=== PATIENT | male | born 1970 | race Caucasian/White ===

== ENCOUNTER 2017-10-05 09:57 | Inpatient (IN) | payer OTHER ==
[2017-10-05] VITALS (10 sets, daily range): BP systolic 127–149; BP diastolic 53–68
[~2017-10-05] VITALS: Ht 167.6 cm; Wt 79.8 kg
[2017-10-05 10:32] LABS: BASE EXCESS -15.2 mEq/L (-3 to +3); BICARBONATE 10.9 mEq/L (22-26); CARBOXY HGB 1.7 % (0-5); COMMENTS - BLOOD GASES A+C+; DEVICE NC; METHEMOGLOBIN 0.7 % (0-1.5); O2 FLOW 3 L/MIN; PCO2 26 mm Hg (35-45); PO2 87 mm Hg (80-100); SITE LR; TOTAL RESP RATE 19 resp/min
[2017-10-05 10:33] LABS: pH 7.23 (7.35-7.45)
[2017-10-05 11:27] LABS: EOSINOPHIL (%) 0.2 % (0-5); HEMATOCRIT 30.6 % (38.0-50.0); INSTRUMENT ABS NEUTROPHIL CT 3.2 K/uL; LYMPHOCYTE COUNT 0.2 K/uL (1.0-2.8); MCH 27.4 PG (29.0-34.0); MCHC 30.4 G/DL (30.0-36.0); MCV 90.3 FL (86-99); MONOCYTE (%) 13.5 % (3-12); MONOCYTE COUNT 0.6 K/uL (0-0.8); NEUTROPHIL (%) 79.2 % (45-76); NEUTROPHIL COUNT 3.2 K/uL (1.8-6.4); RBC DIS.WIDTH-CV 15.5 % (11.8-14.6); RBC DIS.WIDTH-SD 51.9 % (39-53); RED BLOOD COUNT 3.39 M/uL (4.00-5.50); WHITE BLOOD COUNT 4.1 K/uL (4.1-10.2)
[2017-10-05 11:34] LABS: INTER. NORMALIZED RATIO 1.1; PROTHROMBIN TIME 12.7 SEC (10.2-12.9)
[2017-10-05 11:36] LABS: PTT 20.9 SEC (25-37)
[2017-10-05 11:45] LABS: CHLORIDE 93 mEq/L (99-109)
[2017-10-05 11:46] LABS: POTASSIUM 4.9 mEq/L (3.7-5.4); SODIUM 127 mEq/L (136-147); TROP-I INTERPRETATION NEGATIVE; TROPONIN-I 0.01 ng/mL (0.0-0.30)
[2017-10-05 11:49] LABS: ANION GAP 25 MEQ/L (2-14)
[2017-10-05 11:50] LABS: TOTAL BILIRUBIN 0.5 mg/dL (0.0-1.0)
[2017-10-05 11:51] LABS: ALKALINE PHOSPHATASE 141 IU/L (3-129); GFR ESTIMATE (CALCULATED) 13 mL/min/ (58.99-99999)
[2017-10-05 11:53] LABS: UREA NITROGEN (BUN) 75 mg/dL (9-23)
[2017-10-05 11:54] LABS: CREATINE KINASE 116 IU/L (1-294); TOTAL CK 116 IU/L (1-294)
[2017-10-05 11:56] LABS: GLUCOSE 748 mg/dL (70-99)
[2017-10-05 12:00] LABS: CK-MB 7.2 ng/mL (0.0-4.9)
[2017-10-05] MEDS ORDERED: ISOSORBIDE DINI30 MG PO (13:29)
[2017-10-05] MEDS ORDERED: AMLODIPINE BESY10 MG PO (13:30)
[2017-10-05] MEDS ORDERED: HUMALOG100 UNIT/2 SC (13:31)
[2017-10-05] MEDS ORDERED: ESCITALOPRAM OX10 MG PO (13:31)
[2017-10-05] MEDS ORDERED: LYRICA75 MG PO (13:32)
[2017-10-05] MEDS ORDERED: APRESOLINE25 MG PO (13:33)
[2017-10-05] MEDS ORDERED: METOPROLOL TART25 MG PO (13:33)
[2017-10-05] MEDS ORDERED: LANTUS 3 M100 UNITS1 SC (13:34)
[2017-10-05] MEDS ORDERED: MEKINIST2 MG PO (13:35)
[2017-10-05 13:54] LABS: MEAN PLAT.VOLUME 10.6 uM^3 (9.0-12.4); PLAT.SUFFICIENCY ADEQUATE; PLATELET COUNT 196 K/uL (156-360)
[2017-10-05] MEDS ORDERED: ASPIR 8181 M1 PO (14:58)
[2017-10-05] MEDS ORDERED: PREDNISONE5 MG PO (15:00)
[2017-10-05] MEDS ORDERED: IMODIUM A-D2 M2 PO (15:00)
[2017-10-05] MEDS ORDERED: RENVELA800 MG PO (15:01)
[2017-10-05] MEDS ORDERED: TAFINLAR75 MG PO (15:02)
[2017-10-05 16:46] LABS: POINT-OF-CARE METER ID UU14174217
[2017-10-05 16:46] LABS: POINT-OF-CARE METER ID UU14174217
[2017-10-05 17:14] LABS: METH RESISTANT S AUREUS PCR NEGATIVE (NEGATIVE)
[2017-10-05 17:15] LABS: PROBE CHECK PASS; SPECIMEN PROCESSING CONTROL PASS
[2017-10-05 17:49] LABS: POINT-OF-CARE METER ID UU14174217
[2017-10-05 18:11] LABS: POINT-OF-CARE METER ID UU14174217
[2017-10-05 19:10] LABS: POINT-OF-CARE METER ID UU14174217
[2017-10-05 19:33] LABS: POINT-OF-CARE METER ID UU14174217
[2017-10-05 20:35] LABS: POINT-OF-CARE METER ID UU14174217
[2017-10-05 20:45] LABS: ANION GAP 12 MEQ/L (2-14); CHLORIDE 97 MEQ/L (99-109); POTASSIUM 4.1 MEQ/L (3.7-5.4); SAMPLE HEMOLYSIS CHECK 0; SAMPLE ICTERIC CHECK 0; SAMPLE LIPEMIA CHECK 0; SODIUM 133 MEQ/L (136-147)
[2017-10-05 20:53] LABS: GFR ESTIMATE (CALCULATED) 27 mL/min/ (58.99-99999); GLUCOSE 253 mg/dL (70-99); UREA NITROGEN (BUN) 36 mg/dL (9-23)
[2017-10-05 21:34] LABS: POINT-OF-CARE METER ID UU14174217
[2017-10-05 22:30] LABS: POINT-OF-CARE METER ID UU14174217; POINT-OF-CARE USER ID ENVSME70
[2017-10-05 23:39] LABS: POINT-OF-CARE METER ID UU14174217
[2017-10-06] VITALS (12 sets, daily range): BP systolic 134–184; BP diastolic 61–81
[2017-10-06 00:02] LABS: POINT-OF-CARE METER ID UU14162636
[2017-10-06 00:54] LABS: CHLORIDE 99 mEq/L (99-109); POTASSIUM 4.2 mEq/L (3.7-5.4); SODIUM 133 mEq/L (136-147)
[2017-10-06 00:56] LABS: GLUCOSE 102 mg/dL (70-99)
[2017-10-06 00:57] LABS: ANION GAP 11 MEQ/L (2-14)
[2017-10-06 01:00] LABS: GFR ESTIMATE (CALCULATED) 24 mL/min/ (58.99-99999)
[2017-10-06 01:01] LABS: UREA NITROGEN (BUN) 37 mg/dL (9-23)
[2017-10-06 01:41] LABS: POINT-OF-CARE METER ID UU14174217
[2017-10-06 05:42] LABS: EOSINOPHIL (%) 2.3 % (0-5); EOSINOPHIL COUNT 0.1 K/uL (0-0.3); HEMATOCRIT 28.8 % (38.0-50.0); IMMATURE GRANULOCYTE (%) 0.8 % (0.0-0.7); INSTRUMENT ABS NEUTROPHIL CT 2.7 K/uL; LYMPHOCYTE COUNT 0.6 K/uL (1.0-2.8); MCH 27.2 PG (29.0-34.0); MCHC 32.6 G/DL (30.0-36.0); MCV 83.5 FL (86-99); MEAN PLAT.VOLUME 10.4 uM^3 (9.0-12.4); MONOCYTE (%) 13.1 % (3-12); MONOCYTE COUNT 0.5 K/uL (0-0.8); NEUTROPHIL (%) 67.9 % (45-76); NEUTROPHIL COUNT 2.7 K/uL (1.8-6.4); PLATELET COUNT 203 K/uL (156-360); RBC DIS.WIDTH-CV 15.4 % (11.8-14.6); RBC DIS.WIDTH-SD 46.8 % (39-53); RED BLOOD COUNT 3.45 M/uL (4.00-5.50)
[2017-10-06 06:22] LABS: ANION GAP 9 MEQ/L (2-14); CHLORIDE 100 MEQ/L (99-109); GFR ESTIMATE (CALCULATED) 21 mL/min/ (58.99-99999); MAGNESIUM 1.9 mg/dl (1.3-2.7); POTASSIUM 4.2 MEQ/L (3.7-5.4); SAMPLE HEMOLYSIS CHECK 0; SAMPLE ICTERIC CHECK 0; SAMPLE LIPEMIA CHECK 0; SODIUM 134 MEQ/L (136-147); UREA NITROGEN (BUN) 36 mg/dL (9-23)
[2017-10-06 06:23] LABS: GLUCOSE 61 mg/dL (70-99)
[2017-10-06 07:54] LABS: POINT-OF-CARE METER ID UU14174217
[2017-10-06 08:58] LABS: ANION GAP 10 MEQ/L (2-14); CHLORIDE 100 MEQ/L (99-109); GFR ESTIMATE (CALCULATED) 21 mL/min/ (58.99-99999); GLUCOSE 116 mg/dL (70-99); POTASSIUM 4.2 MEQ/L (3.7-5.4); SAMPLE HEMOLYSIS CHECK 0; SAMPLE ICTERIC CHECK 0; SAMPLE LIPEMIA CHECK 0; SODIUM 136 MEQ/L (136-147); UREA NITROGEN (BUN) 37 mg/dL (9-23)
[2017-10-06 11:50] LABS: POINT-OF-CARE METER ID UU14174217
[2017-10-06 17:44] LABS: POINT-OF-CARE METER ID UU14314082
[2017-10-06 22:17] LABS: POINT-OF-CARE METER ID UU14208751
[2017-10-07] VITALS (7 sets, daily range): BP systolic 153–178; BP diastolic 63–99
[2017-10-07 05:31] LABS: EOSINOPHIL (%) 3.2 % (0-5); EOSINOPHIL COUNT 0.2 K/uL (0-0.3); HEMATOCRIT 29.2 % (38.0-50.0); IMMATURE GRANULOCYTE (%) 0.5 % (0.0-0.7); INSTRUMENT ABS NEUTROPHIL CT 4.1 K/uL; LYMPHOCYTE COUNT 0.9 K/uL (1.0-2.8); MCH 26.6 PG (29.0-34.0); MCHC 31.5 G/DL (30.0-36.0); MCV 84.4 FL (86-99); MEAN PLAT.VOLUME 9.8 uM^3 (9.0-12.4); MONOCYTE (%) 12.1 % (3-12); MONOCYTE COUNT 0.7 K/uL (0-0.8); NEUTROPHIL (%) 69.4 % (45-76); NEUTROPHIL COUNT 4.1 K/uL (1.8-6.4); PLATELET COUNT 194 K/uL (156-360); RBC DIS.WIDTH-CV 15.7 % (11.8-14.6); RBC DIS.WIDTH-SD 48.1 % (39-53); RED BLOOD COUNT 3.46 M/uL (4.00-5.50); WHITE BLOOD COUNT 5.9 K/uL (4.1-10.2)
[2017-10-07 06:03] LABS: ANION GAP 11 MEQ/L (2-14); CHLORIDE 96 MEQ/L (99-109); GFR ESTIMATE (CALCULATED) 18 mL/min/ (58.99-99999); POTASSIUM 4.6 MEQ/L (3.7-5.4); SAMPLE HEMOLYSIS CHECK 0; SAMPLE ICTERIC CHECK 0; SAMPLE LIPEMIA CHECK 0; SODIUM 131 MEQ/L (136-147); UREA NITROGEN (BUN) 48 mg/dL (9-23)
[2017-10-07 06:06] LABS: GLUCOSE 74 mg/dL (70-99)
[2017-10-07 07:59] LABS: POINT-OF-CARE METER ID UU14314082
[2017-10-07 14:00] LABS: POINT-OF-CARE METER ID UU14314083
[2017-10-07 17:11] LABS: POINT-OF-CARE METER ID UU14302513
[2017-10-07 21:35] LABS: POINT-OF-CARE METER ID UU13113717
[2017-10-08 00:07] VITALS: BP 152/72
[2017-10-08 04:34] VITALS: BP 162/74
[2017-10-08 06:02] LABS: EOSINOPHIL (%) 1.5 % (0-5); EOSINOPHIL COUNT 0.1 K/uL (0-0.3); HEMATOCRIT 28.5 % (38.0-50.0); IMMATURE GRANULOCYTE (%) 0.4 % (0.0-0.7); INSTRUMENT ABS NEUTROPHIL CT 3.3 K/uL; LYMPHOCYTE COUNT 0.7 K/uL (1.0-2.8); MCH 27.3 PG (29.0-34.0); MCHC 31.6 G/DL (30.0-36.0); MCV 86.4 FL (86-99); MONOCYTE COUNT 0.5 K/uL (0-0.8); NEUTROPHIL (%) 71.9 % (45-76); NEUTROPHIL COUNT 3.3 K/uL (1.8-6.4); PLATELET COUNT 149 K/uL (156-360); RBC DIS.WIDTH-CV 15.6 % (11.8-14.6); RBC DIS.WIDTH-SD 49.8 % (39-53); WHITE BLOOD COUNT 4.6 K/uL (4.1-10.2)
[2017-10-08 06:35] LABS: ALKALINE PHOSPHATASE 112 IU/L (3-129); ANION GAP 10 MEQ/L (2-14); CHLORIDE 94 MEQ/L (99-109); GFR ESTIMATE (CALCULATED) 25 mL/min/ (58.99-99999); POTASSIUM 5.1 MEQ/L (3.7-5.4); SAMPLE HEMOLYSIS CHECK 0; SAMPLE ICTERIC CHECK 0; SAMPLE LIPEMIA CHECK 0; SODIUM 130 MEQ/L (136-147); TOTAL BILIRUBIN 0.6 MG/DL (0.0-1.0); UREA NITROGEN (BUN) 36 mg/dL (9-23)
[2017-10-08 06:42] LABS: GLUCOSE 244 mg/dL (70-99)
[2017-10-08 07:55] VITALS: BP 181/78
[2017-10-08 08:15] LABS: POINT-OF-CARE METER ID UU14302514
[2017-10-08 08:30] LABS: C DIFF TOXIN NEGATIVE (NEGATIVE)
[2017-10-08 08:37] LABS: PROBE CHECK PASS; SPECIMEN PROCESSING CONTROL PASS
[2017-10-08 10:14] LABS: MAGNESIUM 1.9 mg/dl (1.3-2.7)
[2017-10-08 11:03] LABS: Estimated Average Glucose 203 mg/dL (70-123); HEMOGLOBIN A1c (GLYCOHEMOGLOB) 8.7 % HGB (Below 5.7)
[2017-10-08 12:00] VITALS: BP 186/80
[2017-10-08 12:42] LABS: POINT-OF-CARE METER ID UU14302514
[2017-10-08 16:00] VITALS: BP 181/79
[2017-10-08 16:51] LABS: POINT-OF-CARE METER ID UU14302513
[2017-10-08 19:19] VITALS: BP 174/80
[2017-10-08 20:51] LABS: POINT-OF-CARE METER ID UU14302473
[2017-10-08 21:36] LABS: POINT-OF-CARE METER ID UU14302473
[2017-10-09 00:28] VITALS: BP 178/86
[2017-10-09 03:43] VITALS: BP 120/55
[2017-10-09 06:10] LABS: POINT-OF-CARE METER ID UU14302513
[2017-10-09 06:57] LABS: POINT-OF-CARE METER ID UU14302513
[2017-10-09 07:26] VITALS: BP 130/60
[2017-10-09 07:59] LABS: EOSINOPHIL (%) 1.9 % (0-5); EOSINOPHIL COUNT 0.1 K/uL (0-0.3); HEMATOCRIT 28.3 % (38.0-50.0); IMMATURE GRANULOCYTE (%) 0.3 % (0.0-0.7); LYMPHOCYTE COUNT 0.7 K/uL (1.0-2.8); MCH 27.7 PG (29.0-34.0); MCHC 31.8 G/DL (30.0-36.0); MCV 87.1 FL (86-99); MONOCYTE (%) 12.6 % (3-12); MONOCYTE COUNT 0.4 K/uL (0-0.8); PLATELET COUNT 158 K/uL (156-360); RBC DIS.WIDTH-CV 15.5 % (11.8-14.6); RBC DIS.WIDTH-SD 49.3 % (39-53); RED BLOOD COUNT 3.25 M/uL (4.00-5.50); WHITE BLOOD COUNT 3.1 K/uL (4.1-10.2)
[2017-10-09 08:23] LABS: MAGNESIUM 2.2 mg/dl (1.3-2.7)
[2017-10-09 08:57] LABS: ALKALINE PHOSPHATASE 91 IU/L (3-129); ANION GAP 10 MEQ/L (2-14); CHLORIDE 94 MEQ/L (99-109); GLUCOSE 216 mg/dL (70-99); POTASSIUM 5.3 MEQ/L (3.7-5.4); SODIUM 129 MEQ/L (136-147); UREA NITROGEN (BUN) 52 mg/dL (9-23)
[2017-10-09 08:58] LABS: GFR ESTIMATE (CALCULATED) 18 mL/min/ (58.99-99999); TOTAL BILIRUBIN 0.4 MG/DL (0.0-1.0)
[2017-10-09 12:22] LABS: POINT-OF-CARE METER ID UU14302513
[2017-10-09 13:02] LABS: IMM.RETIC FRACTION 9.9 % (3-19); RETIC HGB EQUIVALENT 26.9 (28-36); RETICULOCYTE COUNT 1.6 % (0.5-1.8)
[2017-10-09 13:42] LABS: IRON 30 MCG/DL (35-150)
[2017-10-09 14:25] LABS: FERRITIN 2510 NG/ML (22-322)
[2017-10-09 15:09] VITALS: BP 181/84
[2017-10-09 16:43] LABS: POINT-OF-CARE METER ID UU14302513
[2017-10-09 18:12] VITALS: BP 161/67
[2017-10-09 19:54] VITALS: BP 161/76
[2017-10-09 21:10] LABS: POINT-OF-CARE METER ID UU14302514
[2017-10-10 00:02] VITALS: BP 178/82
[2017-10-10 06:11] LABS: EOSINOPHIL (%) 2.8 % (0-5); EOSINOPHIL COUNT 0.1 K/uL (0-0.3); HEMATOCRIT 31.7 % (38.0-50.0); IMMATURE GRANULOCYTE (%) 0.6 % (0.0-0.7); INSTRUMENT ABS NEUTROPHIL CT 2.3 K/uL; LYMPHOCYTE COUNT 0.7 K/uL (1.0-2.8); MCH 26.1 PG (29.0-34.0); MCV 87.1 FL (86-99); MEAN PLAT.VOLUME 10.6 uM^3 (9.0-12.4); MONOCYTE (%) 11.8 % (3-12); MONOCYTE COUNT 0.4 K/uL (0-0.8); NEUTROPHIL (%) 63.5 % (45-76); NEUTROPHIL COUNT 2.3 K/uL (1.8-6.4); PLATELET COUNT 190 K/uL (156-360); RBC DIS.WIDTH-CV 15.1 % (11.8-14.6); RBC DIS.WIDTH-SD 48.7 % (39-53); RED BLOOD COUNT 3.64 M/uL (4.00-5.50); WHITE BLOOD COUNT 3.6 K/uL (4.1-10.2)
[2017-10-10 06:53] LABS: ANION GAP 9 MEQ/L (2-14); CHLORIDE 96 MEQ/L (99-109); GFR ESTIMATE (CALCULATED) 25 mL/min/ (58.99-99999); MAGNESIUM 2.2 mg/dl (1.3-2.7); POTASSIUM 4.9 MEQ/L (3.7-5.4); SAMPLE HEMOLYSIS CHECK 0; SAMPLE ICTERIC CHECK 0; SAMPLE LIPEMIA CHECK 0; SODIUM 133 MEQ/L (136-147); UREA NITROGEN (BUN) 36 mg/dL (9-23)
[2017-10-10 07:04] LABS: GLUCOSE 83 mg/dL (70-99)
[2017-10-10 07:20] VITALS: BP 122/60
[2017-10-10] MEDS ORDERED: VENTOLIN HFA18 GM IH (12:04)
[2017-10-10 12:17] LABS: POINT-OF-CARE METER ID UU14302513
[2017-10-10 12:57] VITALS: BP 153/65
== END 2017-10-10 16:48 | disposition home or self-care (01) | DRG 637 ==
LOC: EME 09:57 → 4WEST 15:05 → EDOF 15:05 → ENRESERV 15:06 → 4WEST 15:18 → ENRESERV 10-07 14:52 → 5SOUTH 10-07 16:44
PROVIDERS: Emergency Medicine; Hospitalist
PROC: 5A1D80Z Performance of Urinary Filtration, Prolonged Intermittent, 6-18 hours Per Day (ICD-10-PCS; principal; 2017-10-05)
PROC: 06HM33Z Insertion of Infusion Device into Right Femoral Vein, Percutaneous Approach (ICD-10-PCS; 2017-10-05)
DX: E11.10 Type 2 diabetes mellitus with ketoacidosis without coma (principal); J96.01 Acute respiratory failure with hypoxia; N18.6 End stage renal disease; C78.02 Secondary malignant neoplasm of left lung; C78.01 Secondary malignant neoplasm of right lung; T86.12 Kidney transplant failure; T86.891 Other transplanted tissue failure; E87.1 Hypo-osmolality and hyponatremia; I12.0 Hypertensive chronic kidney disease with stage 5 chronic kidney disease or end stage renal disease; E78.5 Hyperlipidemia, unspecified; E11.40 Type 2 diabetes mellitus with diabetic neuropathy, unspecified; E11.319 Type 2 diabetes mellitus with unspecified diabetic retinopathy without macular edema; E11.22 Type 2 diabetes mellitus with diabetic chronic kidney disease; D63.1 Anemia in chronic kidney disease; K21.9 Gastro-esophageal reflux disease without esophagitis; R79.1 Abnormal coagulation profile; F41.9 Anxiety disorder, unspecified; E11.65 Type 2 diabetes mellitus with hyperglycemia; Z88.0 Allergy status to penicillin; Z79.4 Long term (current) use of insulin; Z85.820 Personal history of malignant melanoma of skin; Z74.01 Bed confinement status; Z99.2 Dependence on renal dialysis
CPT/HCPCS: 36600; 70450; 71010; 78582; 80048; 80048 91; 80053; 81003; 82550; 82553; 82607; 82728; 82746; 82803; 82948; 83036; 83540; 83605; 83735; 84100; 84466; 84484; 85025; 85379; 85610; 85730; 87040; 87493; 87641; 93005; 93970; 94799; 99202; 99281; 99285; A9540; A9567; C1751; J1644; J1815; J2405; J7030; J7050; S0028